=== PATIENT | male | born 2000 | race American Indian/Alaskan Native ===

== ENCOUNTER 2021-09-10 10:47 | Emergency (ER) | payer SELFPAY ==
[2021-09-10 12:13] LABS: CORONAVIRUS COVID-19 NAA NEGATIVE (NEGATIVE)
[2021-09-10] MEDS ORDERED: Ondansetron 4 MG Tab.DIS PO ONE (12:23)
== END 2021-09-10 12:48 | disposition home or self-care (01) ==
LOC: DL.ED 10:47
DX: B34.9 Viral infection, unspecified (principal); Z20.822 Contact with and (suspected) exposure to COVID-19
CPT/HCPCS: 0240U; 99284; A9270

== ENCOUNTER 2021-09-25 08:31 | Emergency (ER) | payer SELFPAY ==
[2021-09-25 09:29] LABS: RESPIRATORY SYNCYTIAL VIR NAA NEGATIVE (NEGATIVE)
[2021-09-25 09:30] LABS: CORONAVIRUS COVID-19 NAA POSITIVE (NEGATIVE)
== END 2021-09-25 09:49 | disposition home or self-care (01) ==
LOC: DL.ED 08:31
DX: U07.1 COVID-19 (principal)
CPT/HCPCS: 0241U; 99283

== ENCOUNTER 2021-12-16 18:48 | Emergency (ER) | payer SELFPAY | END 2021-12-16 19:26 | disposition left against medical advice (07) | LOC: DL.ED 18:48 | DX: Z53.21 Procedure and treatment not carried out due to patient leaving prior to being seen by health care provider (principal) ==

== ENCOUNTER 2024-06-04 14:38 | Emergency (ER) | payer MEDICAID, OTHER ==
[2024-06-04] MEDS: Acetaminophen 500 MG Tab PO ONE (15:29)
== END 2024-06-04 16:26 | disposition home or self-care (01) ==
LOC: DL.ED 14:38
DX: S80.01XA Contusion of right knee, initial encounter (principal); F17.210 Nicotine dependence, cigarettes, uncomplicated; W22.8XXA Striking against or struck by other objects, initial encounter
CPT/HCPCS: 73562; 99283; A9270

== ENCOUNTER 2024-08-10 13:02 | Emergency (ER) | payer SELFPAY ==
[2024-08-10] MEDS: Acetaminophen 500 MG Tab PO ONE (13:33)
== END 2024-08-10 13:45 | disposition home or self-care (01) ==
LOC: DL.ED 13:02
DX: G89.29 Other chronic pain (principal); M25.561 Pain in right knee; F17.210 Nicotine dependence, cigarettes, uncomplicated
CPT/HCPCS: 99283; A9270

== ENCOUNTER 2024-09-24 08:16 | Emergency (ER) | payer SELFPAY | END 2024-09-24 09:20 | disposition home or self-care (01) | LOC: DL.ED 08:16 | DX: J40 Bronchitis, not specified as acute or chronic (principal) | CPT/HCPCS: 87428-QW; 99284 ==

== ENCOUNTER 2025-03-10 12:04 | Emergency (ER) | payer SELFPAY ==
[2025-03-10] MEDS ORDERED: Sodium Chloride 0.9% 10 ML Syringe FLUSH PRN (12:23)
[2025-03-10] MEDS: Ondansetron 4 MG/2 ML SDV IVPUSH ONE (12:28)
[2025-03-10 12:45] LABS: BASOPHILS PERCENT AUTO 0.5 % (0.0-1.0); EOSINOPHILS PERCENT AUTO 4.8 % (1.0-3.0); HEMOGLOBIN 16.4 g/dL (14.0-18.0); LYMPHOCYTES PERCENT AUTO 31.8 % (20.5-50.1); MEAN CORPUSCULAR HEMOGLOBIN 29.3 pg (27.0-34.0); MEAN CORPUSCULAR HGB CONC 34.2 g/dL (33.0-35.0); MEAN CORPUSCULAR VOLUME 85.7 fL (80-100); MONOCYTES PERCENT AUTO 7.4 % (2-8); NEUTROPHILS PERCENT AUTO 55.5 % (42.2-75.2); PLATELET COUNT,PLT 287 10^3/uL (150-450); WHITE BLOOD CELL COUNT,WBC 6.2 10^3/uL (5.0-10.0)
[2025-03-10 12:47] LABS: APPEARANCE,URINE CLEAR (CLEAR); BILIRUBIN,URINE NEGATIVE (NEGATIVE); COLOR,URINE YELLOW (YELLOW); GLUCOSE,URINE 100 (NEGATIVE); KETONES,URINE NEGATIVE (NEGATIVE); LEUKOCYTE ESTERASE,URINE NEGATIVE (NEGATIVE); NITRITE,URINE NEGATIVE (NEGATIVE); OCCULT BLOOD,URINE NEGATIVE (NEGATIVE); PROTEIN,URINE NEGATIVE (NEGATIVE); UROBILINOGEN,URINE 0.2 mg/dL (0.2-1.0)
[2025-03-10 13:03] LABS: PTT,PARTIAL THROMBOPLSTIN TIME 25.5 SEC (22.0-34.0)
[2025-03-10 13:04] LABS: A/G RATIO 1.1; ALANINE AMINOTRANSFERASE,ALT 33 U/L (16-63); ALBUMIN 3.6 g/dL (3.4-5.0); ALKALINE PHOSPHATASE 119 U/L (46-116); ANION GAP 12.8 mEq/L (7-13); ASPARTATE AMNIOTRANSFERASE,AST 15 U/L (15-37); BILIRUBIN TOTAL 0.4 mg/dL (0.2-1.0); BLOOD UREA NITROGEN,BUN 11 mg/dL (7-18); BUN/CREATININE RATIO 11.6 (No establ ref range); CALCIUM 8.8 mg/dL (8.5-10.1); CARBON DIOXIDE,CO2 27 mmol/L (21-32); CHLORIDE,CL 107 mmol/L (98-107); CREATININE 0.95 mg/dL (0.70-1.30); GLUCOSE RANDOM 124 mg/dL (70-99); LIPASE 23 U/L (16-77); POTASSIUM,K 3.8 mmol/L (3.5-5.1); PROTEIN TOTAL,TP 6.9 g/dL (6.4-8.2); SODIUM,NA 143 mmol/L (136-145)
[2025-03-10 13:06] LABS: ESTIMATED GFR 115 mL/min (>=60)
[2025-03-10 13:07] LABS: C-REACTIVE PROTEIN < 0.50 ng/dL (<=0.50)
[2025-03-10 13:13] LABS: LACTIC ACID 2.3 mmol/L (0.4-2.0)
[2025-03-10] MEDS: Iopamidol 612 MG/ML 100 ML Bottle IVPUSH ONE (13:30)
== END 2025-03-10 16:16 | disposition home or self-care (01) ==
LOC: DL.ED 12:04
DX: K57.30 Diverticulosis of large intestine without perforation or abscess without bleeding (principal); R11.2 Nausea with vomiting, unspecified; F17.200 Nicotine dependence, unspecified, uncomplicated; Z86.16 Personal history of COVID-19
CPT/HCPCS: 36415; 71045; 74177; 80053; 81003; 83605; 83690; 85025; 85610; 85730; 86140; 87040; 96374; 99284; 99285; J2405; Q9967

== ENCOUNTER 2025-03-17 10:41 | Emergency (ER) | payer SELFPAY | END 2025-03-17 14:02 | disposition home or self-care (01) | LOC: DL.ED 10:41 | DX: H60.92 Unspecified otitis externa, left ear (principal); Z86.16 Personal history of COVID-19 | CPT/HCPCS: 99282 ==

== ENCOUNTER 2025-03-28 12:17 | Emergency (ER) | payer SELFPAY ==
[2025-03-28 12:55] LABS: BASOPHILS PERCENT AUTO 0.6 % (0.0-1.0); EOSINOPHILS PERCENT AUTO 5.0 % (1.0-3.0); LYMPHOCYTES PERCENT AUTO 27.2 % (20.5-50.1); MONOCYTES PERCENT AUTO 8.4 % (2-8); NEUTROPHILS PERCENT AUTO 58.8 % (42.2-75.2); PLATELET COUNT,PLT 289 10^3/uL (150-450); RED BLOOD CELL COUNT 5.01 10^6/uL (4.6-6.2); WHITE BLOOD CELL COUNT,WBC 7.3 10^3/uL (5.0-10.0)
[2025-03-28 13:14] LABS: A/G RATIO 1.1; ALANINE AMINOTRANSFERASE,ALT 32.0 U/L (16-63); ASPARTATE AMNIOTRANSFERASE,AST 17.0 U/L (15-37); BILIRUBIN TOTAL 0.3 mg/dL (0.2-1.0); BLOOD UREA NITROGEN,BUN 12.0 mg/dL (7-18); CARBON DIOXIDE,CO2 27.0 mmol/L (21-32); CHLORIDE,CL 107.0 mmol/L (98-107); CREATININE 0.84 mg/dL (0.70-1.30); EST CRCL DRUG DOSING (CG) 117.96 mL/min; ESTIMATED GFR 125.0 mL/min (>=60); GLUCOSE RANDOM 107.0 mg/dL (70-99); POTASSIUM,K 3.9 mmol/L (3.5-5.1); PROTEIN TOTAL,TP 6.4 g/dL (6.4-8.2); SODIUM,NA 139.0 mmol/L (136-145)
[2025-03-28] MEDS: Iopamidol 612 MG/ML 100 ML Bottle IVPUSH ONE (13:54)
[2025-03-28] MEDS: Aluminum Hydroxide/Magnesium Hydroxide/Simethicone Susp 30 ML Cup PO ONE (15:22)
== END 2025-03-28 15:20 | disposition home or self-care (01) ==
LOC: DL.ED 12:17
DX: R10.11 Right upper quadrant pain (principal); Z86.16 Personal history of COVID-19
CPT/HCPCS: 36415; 74177; 80053; 83690; 83735; 85025; 99284; A9270-GY; Q9967

== ENCOUNTER 2025-06-23 08:20 | Emergency (ER) | payer BC ==
[2025-06-23] MEDS: Ondansetron 4 MG/2 ML SDV IVPUSH ONE (08:44)
== END 2025-06-23 10:52 | disposition home or self-care (01) ==
LOC: DL.ED 08:20
DX: K52.9 Noninfective gastroenteritis and colitis, unspecified (principal); F17.200 Nicotine dependence, unspecified, uncomplicated; Z86.16 Personal history of COVID-19
CPT/HCPCS: 96361; 96374; 99283; A9270; J2405; J7030

== ENCOUNTER 2025-07-20 07:40 | Emergency (ER) | payer BC ==
[2025-07-20] MEDS: Ondansetron 4 MG/2 ML SDV IVPUSH ONE (07:57)
== END 2025-07-20 09:28 | disposition home or self-care (01) ==
LOC: DL.ED 07:40
DX: R11.2 Nausea with vomiting, unspecified (principal); F17.200 Nicotine dependence, unspecified, uncomplicated; Z86.16 Personal history of COVID-19
CPT/HCPCS: 96361; 96374; 99283; J2405; J7030

== ENCOUNTER 2025-08-22 15:36 | Emergency (ER) | payer BC | END 2025-08-22 16:59 | disposition home or self-care (01) | LOC: DL.ED 15:36 | DX: J06.9 Acute upper respiratory infection, unspecified (principal); B34.9 Viral infection, unspecified; Z86.16 Personal history of COVID-19 | CPT/HCPCS: 87081; 87428-QW; 87430; 99283; 99284; A9270-GY ==